=== PATIENT | female | born 1990 | race Caucasian/White ===

== ENCOUNTER 2018-04-11 17:33 | Outpatient (CLI) | payer OTHER ==
[~2018-04-11] VITALS: Ht 175.3 cm; Wt 92.3 kg
[2018-04-11] MEDS ORDERED: PRENATAL1 TA7 PO (17:37)
[2018-04-11] MEDS ORDERED: FOLIC ACID 11 MG/TA1 PO (17:37)
[2018-04-11 17:38] VITALS: BP 138/77; PULSE 100; TEMP 98.1
[2018-04-11] MEDS ORDERED: ZOFRAN 4MG T4 MG/TAB PO (17:38)
[2018-04-11] MEDS ORDERED: ZANTAC 150MG T150 MG PO (17:38)
[2018-04-11 17:47] LABS: COLLECTION METHOD CLEAN CATCH
[2018-04-11 17:52] LABS: BASO % 0.3 % (0.0-2.0); EOS # 0.2 (0.0-0.7); EOS % 1.5 % (0-4.0); GRAN # 8.4 (1.4-6.5); GRAN % 74.1 % (42.2-75.2); HEMOGLOBIN 10.1 g/dl (12.5-16.0); LYMPH # 1.8 (1.2-3.4); LYMPH % 15.7 % (20.0-51.0); MEAN CELL VOLUME 84 fl (80.0-100.0); MEAN CORPUSCULAR HEMOGLOBIN 28 pg (27.0-31.0); MEAN CORPUSCULAR HGB CONC 34 g/dl (33.0-37.0); MEAN PLATELET VOLUME 9.3 fl (7.4-10.4); MONO # 0.9 (0.1-0.6); MONO % 7.8 % (1.7-9.3); PLATELET COUNT 237 K/mm3 (130-400); RED BLOOD COUNT 3.58 M/mm3 (4.10-5.30); REDCELL DISTRIBUTION WIDTH-CV 13.2 % (11.5-14.5)
[2018-04-11 17:55] LABS: MUCOUS Present /lpf; PH 5 (5-8); URINE APPEARANCE Hazy; URINE BACTERIA Rare /hpf; URINE BILIRUBIN Negative (NEGATIVE); URINE BLOOD Negative (NEGATIVE); URINE COLOR Yellow; URINE GLUCOSE Negative (NEGATIVE); URINE KETONE Trace (NEGATIVE); URINE LEUKOCYTE ESTERASE 2+ (NEGATIVE); URINE NITRATE Negative (NEGATIVE); URINE PROTEIN(semi-quant) 1+ (NEGATIVE); URINE UROBILINOGEN Negative (NEGATIVE); URINE WBC 20-50 /hpf
[2018-04-11 18:00] VITALS: BP 133/65; PULSE 99
[2018-04-11] MEDS ORDERED: MACROBID 1100 MG/CAP PO (18:10)
== END 2018-04-11 18:15 | disposition home or self-care (01) ==
LOC: LDRO 17:33
PROVIDERS: Obstetrics & Gynecology
DX: O60.03 Preterm labor without delivery, third trimester (principal); Z3A.29 29 weeks gestation of pregnancy

== ENCOUNTER 2018-04-21 17:00 | Outpatient (CLI) | payer OTHER ==
[~2018-04-21] VITALS: Ht 175.3 cm; Wt 93.4 kg
[~2018-04-21 17:00] MED LIST: FOLIC ACID 11 MG/TA1 PO; MACROBID 1100 MG/CAP PO; PRENATAL1 TA7 PO; ZANTAC 150MG T150 MG PO; ZOFRAN 4MG T4 MG/TAB PO
== END 2018-04-21 17:45 | disposition home or self-care (01) ==
LOC: LDR 17:00 → LDRO 17:00
DX: O30.043 Twin pregnancy, dichorionic/diamniotic, third trimester (principal); Z3A.30 30 weeks gestation of pregnancy
CPT/HCPCS: OP

== ENCOUNTER 2018-05-23 11:25 | Outpatient (RCR) | payer OTHER ==
[2018-05-09 11:09] VITALS: BP 127/74; PULSE 103
[~2018-05-23] VITALS: Ht 175.3 cm; Wt 94.3 kg
[2018-05-30] MEDS ORDERED: MOTRIN 800800 MG/TAB PO (07:21)
[2018-05-30] MEDS ORDERED: PERCOCET 325 MG1 TA2 PO (07:21)
== END 2018-07-24 | disposition home or self-care (01) ==
LOC: LDRO
DX: O30.003 Twin pregnancy, unspecified number of placenta and unspecified number of amniotic sacs, third trimester (principal); Z3A.31 31 weeks gestation of pregnancy
CPT/HCPCS: J0690; J2370; J2405

== ENCOUNTER 2018-05-30 05:27 | Inpatient (IN) | payer OTHER ==
[~2018-05-30] VITALS: Ht 175.3 cm; Wt 96.4 kg
[2018-05-30] VITALS (15 sets, daily range): BP systolic 111–174; BP diastolic 61–93; PULSE 62–101; TEMP 98–98.3
[2018-05-30 06:23] LABS: BASO % 0.3 % (0.0-2.0); EOS # 0.1 (0.0-0.7); EOS % 0.8 % (0-4.0); GRAN # 7.2 (1.4-6.5); GRAN % 65.9 % (42.2-75.2); HEMOGLOBIN 10.7 g/dl (12.5-16.0); LYMPH # 2.4 (1.2-3.4); LYMPH % 22.1 % (20.0-51.0); MEAN CELL VOLUME 80 fl (80.0-100.0); MEAN CORPUSCULAR HEMOGLOBIN 27 pg (27.0-31.0); MEAN CORPUSCULAR HGB CONC 33 g/dl (33.0-37.0); MEAN PLATELET VOLUME 10.3 fl (7.4-10.4); MONO # 1.1 (0.1-0.6); MONO % 10.3 % (1.7-9.3); PLATELET COUNT 268 K/mm3 (130-400); RED BLOOD COUNT 4.03 M/mm3 (4.10-5.30); REDCELL DISTRIBUTION WIDTH-CV 13.7 % (11.5-14.5)
[2018-05-30 06:54] LABS: HEMATOCRIT 32.4 % (37.0-47.0)
[2018-05-30] MEDS ORDERED: MOTRIN 800800 MG/TAB PO (07:21)
[2018-05-30] MEDS ORDERED: PERCOCET 325 MG1 TA2 PO (07:21)
[2018-05-31 01:10] VITALS: BP 128/76; PULSE 79; TEMP 98.4
[2018-05-31 07:00] VITALS: BP 125/75; PULSE 82; TEMP 98
[2018-05-31 15:45] VITALS: BP 123/79; PULSE 81; TEMP 98.9
[2018-05-31 20:30] VITALS: BP 128/72; PULSE 93; TEMP 98.3
[2018-06-01 08:15] VITALS: BP 121/82; PULSE 87; TEMP 98.3
[2018-06-01 16:15] VITALS: BP 133/78; PULSE 94; TEMP 99.3
[2018-06-01 22:45] VITALS: BP 125/76; PULSE 87; TEMP 98.2
[2018-06-02 07:30] VITALS: BP 130/77; PULSE 79; TEMP 98.2
== END 2018-06-02 12:45 | disposition home or self-care (01) | DRG 765 ==
LOC: OB 05:27 → LDR 06:37 → OB 06-02 12:45
PROVIDERS: Obstetrics & Gynecology
PROC: 10D00Z1 Extraction of Products of Conception, Low, Open Approach (ICD-10-PCS; principal; 2018-05-30)
PROC: 0UT70ZZ Resection of Bilateral Fallopian Tubes, Open Approach (ICD-10-PCS; 2018-05-30)
DX: O36.5931 Maternal care for other known or suspected poor fetal growth, third trimester, fetus 1 (principal); O36.5932 Maternal care for other known or suspected poor fetal growth, third trimester, fetus 2; O30.043 Twin pregnancy, dichorionic/diamniotic, third trimester; Z3A.36 36 weeks gestation of pregnancy; Z37.2 Twins, both liveborn; Z40.03 Encounter for prophylactic removal of fallopian tube(s); O99.214 Obesity complicating childbirth; Z22.330 Carrier of Group B streptococcus
CPT/HCPCS: J0690; J1885; J2175; J2370; J2405; J2590; J3010; J7120

== ENCOUNTER → 2020-01-09 | Outpatient (CLI) | payer OTHER ==
[~2020-01-09] MED LIST changes: +MOTRIN 800800 MG/TAB PO; +PERCOCET 325 MG1 TA2 PO
== END ==
LOC: BHSO 12:51
DX: F41.1 Generalized anxiety disorder (principal)

== ENCOUNTER → 2020-01-30 | Outpatient (CLI) | payer OTHER | LOC: BHSO 13:09 | DX: F33.1 Major depressive disorder, recurrent, moderate (principal) ==

== ENCOUNTER → 2020-02-06 | Outpatient (CLI) | payer OTHER | LOC: BHSO 13:58 | DX: F41.1 Generalized anxiety disorder (principal) ==

== ENCOUNTER → 2020-02-13 | Outpatient (CLI) | payer OTHER | LOC: BHSO 13:54 | DX: F41.1 Generalized anxiety disorder (principal) ==

== ENCOUNTER → 2020-03-19 | Outpatient (CLI) | payer OTHER ==
[~2020-03-19] VITALS: Ht 175.3 cm; Wt 105.8 kg
[~2020-03-19] MED LIST changes: +WELLBUTRIN XL300 M1 PO; +ZOLOFT 100MG100 MG PO
[2020-03-19 12:15] VITALS: BP 144/98; PULSE 104
[2020-03-19 13:05] VITALS: BP 146/96; PULSE 100
--- NOTE | 2020-03-19 13:22 | NUR ---
PT AMBULATORY TO FRONT LOBBY. AGAIN WENT OVER DC INSTRUCTIONS WITH PT. PT VERBALIZED UNDERSTANDING OF INSTRUCTIONS.
== END ==
LOC: COL.RAD 11:54
DX: E07.9 Disorder of thyroid, unspecified (principal)

== ENCOUNTER 2020-07-06 14:53 | Inpatient (IN) | payer OTHER ==
[~2020-07-06] VITALS: Ht 175.3 cm; Wt 106.5 kg
[2020-07-06 15:18] LABS: BASO % 0.4 % (0.0-2.0); EOS # 0.1 (0.0-0.7); EOS % 1.1 % (0-4.0); GRAN # 3.2 (1.4-6.5); HEMATOCRIT 41.6 % (37.0-47.0); HEMOGLOBIN 13.3 g/dl (12.5-16.0); LYMPH # 0.8 (1.2-3.4); LYMPH % 18.7 % (20.0-51.0); MEAN CELL VOLUME 82 fl (80.0-100.0); MEAN CORPUSCULAR HEMOGLOBIN 26 pg (27.0-31.0); MEAN CORPUSCULAR HGB CONC 32 g/dl (33.0-37.0); MEAN PLATELET VOLUME 9.4 fl (7.4-10.4); MONO # 0.4 (0.1-0.6); MONO % 8.4 % (1.7-9.3); PLATELET COUNT 227 K/mm3 (130-400); RED BLOOD COUNT 5.09 M/mm3 (4.10-5.30); REDCELL DISTRIBUTION WIDTH-CV 13.5 % (11.5-14.5)
[2020-07-06 15:28] LABS: ALBUMIN 4.2 gm/dL (3.5-5.0); BILIRUBIN,TOTAL 0.5 mg/dL (0.0-1.0); CALCIUM 8.9 mg/dL (8.4-10.2); CREATININE, serum 0.86 (0.52-1.25); POTASSIUM 3.7 mmol/L (3.4-5.0)
[2020-07-06 18:27] VITALS: BP 122/68; PULSE 118; TEMP 100.2
--- NOTE | 2020-07-06 18:32 | NUR ---
PT ARRIVED TO UNIT @ 1750. STATES MODERATE PAIN TO MID CHEST SHARP 'LIKE BREATHING IN COLD AIR IN THE WINTER". AT REST AND WITH ACTIVITY. VSS. REQUESTING DINNER. STEADY INDEPENDENT AMBULATION. IVF TO RT FA IV INTACT. DENIES COUGH AT THIS TIME
[2020-07-06] MEDS ORDERED: PROAIR HFA0.09 MG/AC IH (18:33)
[2020-07-06] MEDS ORDERED: MUCINEX 60600 MG/TA1 PO (18:34)
[2020-07-06 20:00] VITALS: BP 150/85; PULSE 105; TEMP 100.5
[2020-07-06 21:44] VITALS: TEMP 98.5
--- NOTE | 2020-07-06 22:03 | NUR ---
Pt assessment completed and documented. Pt just returned to bed from ambulating in her room. Complaints of chest tightness that is unchanged since admit and is worse when she is ambulating. Pt states slight relief from pain now that she is resting in bed again. Pt described chest tightness as if she "feels like she is breathing in cold air". PRN tylenol given at this time per pt request. IVF infusing per orders to right forearm IV site. IV site CDI with good blood return. Telemetry on. Pt denies any other needs. Call light within reach. Will continue to monitor.
[2020-07-06 23:53] VITALS: BP 145/72; PULSE 96; TEMP 97.6
[2020-07-07 04:00] VITALS: BP 148/82; PULSE 82; TEMP 97.8
--- NOTE | 2020-07-07 05:00 | NUR ---
Pt had uneventful shift. Pt rested well overnight. Max temp during the night was 100.5. PRN tylenol given per pt request for complaints of "chest tightness". Telemetry on. IVF infusing per orders to right forearm IV. Pt denies any other needs. Call light within reach.
--- NOTE | 2020-07-07 06:30 | NUR ---
Report given outside room, discussed with pt at doorway and asked for needs. Will provide and continue to monitor.
[2020-07-07 06:46] LABS: BASO % 0.3 % (0.0-2.0); GRAN # 2.2 (1.4-6.5); GRAN % 60.9 % (42.2-75.2); HEMATOCRIT 37.9 % (37.0-47.0); HEMOGLOBIN 12.3 g/dl (12.5-16.0); LYMPH # 1.1 (1.2-3.4); LYMPH % 29.9 % (20.0-51.0); MEAN CELL VOLUME 82 fl (80.0-100.0); MEAN CORPUSCULAR HEMOGLOBIN 27 pg (27.0-31.0); MEAN CORPUSCULAR HGB CONC 33 g/dl (33.0-37.0); MEAN PLATELET VOLUME 9.7 fl (7.4-10.4); MONO # 0.3 (0.1-0.6); MONO % 8.4 % (1.7-9.3); PLATELET COUNT 206 K/mm3 (130-400); RED BLOOD COUNT 4.65 M/mm3 (4.10-5.30); REDCELL DISTRIBUTION WIDTH-CV 13.8 % (11.5-14.5)
[2020-07-07 07:03] LABS: CALCIUM 8.2 mg/dL (8.4-10.2); CREATININE, serum 0.72 (0.52-1.25)
[2020-07-07 09:08] VITALS: BP 102/68; PULSE 92; TEMP 98.2
--- NOTE | 2020-07-07 09:20 | NUR ---
Assessment charted. Pt resting in bed, educated on how to use IS, pt only able to raise it to 500 ml, coughing copious but not expectorating anything. Pt resting in bed and states when at rest no pain but when breathing deeply or up ambulating pain in chest is 8/10. VSS, breathing shallow. IVF to RFA. Will continue to monitor.
[2020-07-07 13:50] VITALS: BP 136/84; PULSE 93; TEMP 98.7
--- NOTE | 2020-07-07 16:27 | NUR ---
Dining Host contacted patient by phone to discuss discharge planning. Patient lives on [address] with her , Luis (ph#[phone]) and sees CHEL Brumfield at [facility]. Patient obtains medications from [facility] or [facility]. Patient does not use any DME and is independent with ADLS. Patient does not have Advance Directives in EMR. Patient plans to return home upon discharge. SW will continue to follow as needed.
[2020-07-07 17:33] VITALS: BP 124/82; PULSE 102; TEMP 99.3
--- NOTE | 2020-07-07 18:22 | NUR ---
Pt has done well today, cnotinues to have shortness of breath and dry cough. PRN tyelenol given per request. Resting in bed, wants to shower after supper. Denies needs, will continue to monitor.
--- NOTE | 2020-07-07 19:20 | NUR ---
Report received from SARIKA Houser. Pt resting in bed, denies needs at this time.
[2020-07-07 20:00] VITALS: BP 145/84; PULSE 105; TEMP 98.6
--- NOTE | 2020-07-07 20:15 | NUR ---
Bedside report received from SARIKA Rogers
[2020-07-08] VITALS (8 sets, daily range): BP systolic 130–150; BP diastolic 70–98; PULSE 97–124; TEMP 99.1–102.9
--- NOTE | 2020-07-08 01:15 | NUR ---
patient has complaints of a headache, tylenol provided. Patient also gets up to the restroom, returns to bed very SOA. Patient takes 15mins before she is calm again and able to lay back. Patient says she feels like her SOA is worse than yesterday. Let her know that she needs to notify us if she feels like she can't breathe and we can start her on some oxygen. Notified RT John of this change.
--- NOTE | 2020-07-08 06:00 | NUR ---
Patient states she is doing much better a this time breathing minor. States that she did finally get some sleep. Labs drawn. Apple juice requested, provided. No further needs at this time. Call light within reach
[2020-07-08 06:33] LABS: CALCIUM 7.7 mg/dL (8.4-10.2); CREATININE, serum 0.84 (0.52-1.25); POTASSIUM 3.6 mmol/L (3.4-5.0)
[2020-07-08 06:42] LABS: BASO % 0.1 % (0.0-2.0); GRAN # 4.6 (1.4-6.5); GRAN % 66.5 % (42.2-75.2); HEMOGLOBIN 10.8 g/dl (12.5-16.0); LYMPH # 1.9 (1.2-3.4); MEAN CELL VOLUME 83 fl (80.0-100.0); MEAN CORPUSCULAR HEMOGLOBIN 27 pg (27.0-31.0); MEAN CORPUSCULAR HGB CONC 32 g/dl (33.0-37.0); MEAN PLATELET VOLUME 9.5 fl (7.4-10.4); MONO # 0.4 (0.1-0.6); PLATELET COUNT 217 K/mm3 (130-400); RED BLOOD COUNT 4.07 M/mm3 (4.10-5.30); REDCELL DISTRIBUTION WIDTH-CV 13.9 % (11.5-14.5)
[2020-07-08 06:47] LABS: HEMATOCRIT 33.9 % (37.0-47.0)
--- NOTE | 2020-07-08 07:08 | NUR ---
Bedside report given to SARIKA Arvizu
--- NOTE | 2020-07-08 09:00 | NUR ---
Patient sitting up in bed, does not want to move because it hurts to move. Refusing pain medication. VSS. Reporting SOB with exertion and talking, on room air and O2 sats WNL. IV CDI, fluids infusing. Droplet/contact precautions in place. No further needs expressed from the patient. Call light within reach
--- NOTE | 2020-07-08 17:40 | NUR ---
Patient has had an eventful day. Reporting dyspnea with exertion and talking, no O2 required. O2 sats WNL on room air. VSS. A&Ox4. Only complaint of a headache not relieved by tylenol. Has had a laible temperature and given tylenol as needed. IV CDI, fluids infusing. Droplet/contact precautions in place. No further needs expressed from the patient. Call light within reach
--- NOTE | 2020-07-08 21:00 | NUR ---
Initial shift assessment done- temp 99.7, requesting Tylenol- given at this time. Tele on. Up to bathroom on own- SOB with exertion, back to bed now- o2 sats 96% on room air. Did eat 1/2 supper tonight. IV fluids of NS at 60cc/hr.
[2020-07-09] VITALS (291 sets, daily range): BP systolic 118–142; BP diastolic 79–95; PULSE 101–124; TEMP 98.2–103.1; O2SAT 92–100
--- NOTE | 2020-07-09 04:30 | NUR ---
Temp 103.1- pt states she feels awful-feels like she is" getting worse", when getting tylenol- pt states is nauseated- did give the Zofran IV as ordered and stayed with pt for 15 minutes to see if nausea will pass-- still nauseated,,Poppy VALENTINE called with temp and nausea--will order phenergan and tylenol suppository,,,, pt helped up to bathroom,gets SOB with activity- sats do not drop though-- will put o2 at 2L/nc for comfort- back to bed, tylenol and phenergan given--stayed with patient -- states she does have a headache also--was just given tylenol,, was with patient for over an hour,,anxious-- seems more relaxed now- resting.
--- NOTE | 2020-07-09 10:40 | NUR ---
Assessment complete. Patient sitting up in bed finishing consult with Dr. Madrigal at this time. States she does still feel short of breath and like it is hard to breathe, per her conversation with Dr. Madrigal. heart rate remains tachycardic. She reports a headache at this time, PRN tylenol provided for this pain.
--- NOTE | 2020-07-09 11:52 | NUR ---
Patient transferred to the ICU. SW notified ICU EMERITA Dougherty.
--- NOTE | 2020-07-09 13:49 | NUR ---
Patient transferred to the ICU at this time. Patient remained stable through transfer. report called to SARIKA Nina prior to move. Patient became short of breath while ambulating from bed to wheel chair but managed to transfer well. Chart was handed off.
[2020-07-09 14:09] LABS: ARTERIAL BLD GAS O2 SATURATION 93.1 % (92-100); ARTERIAL BLD GAS TCO2 CT 24.9; ARTERIAL BLOOD GAS BASE EXCESS 0.8 (-2-2); ARTERIAL BLOOD GAS HCO3 23.9 meq/L (22-26); ARTERIAL BLOOD GAS PCO2 33.4 mmHg (35-45); ARTERIAL BLOOD GAS PO2 59.1 mmHg (80-100); ARTERIAL BLOOD GAS pH 7.47 (7.35-7.45)
--- NOTE | 2020-07-09 19:00 | NUR ---
Received report from SARIKA Nina. Patient is sitting upright in bed with meal tray at this time. No needs at this time; patient is tachypneic at a rate of 25-30. Other vitals within normal limits. Will continue to monitor.
--- NOTE | 2020-07-09 20:30 | NUR ---
Patient notibly more tachypneic and tachycardic during and following use of commode. HR reaching 130s at times. Auscultated respiratory rated noted to be high 40s to 50 after patient resting quietly in bed 15 minutes following transfer. She remains on 2L NC with O2 saturation mid to high 90s. She states she feels short of breath and is experiencing some chest tightness, but not chest pain. Other vitals remain within normal limits. Patient also states she has not slept well the last few nights, and is anxious she will not have a good night tonight either. Spoke with RT, who agreed patient seems to have increased work of breathing even after a breathing treatment. Poppy notified at 2112 of patient's condition and vital signs.
[2020-07-09] MEDS ORDERED: ZOLOFT 50MG50 MG PO (22:19)
[2020-07-09] MEDS ORDERED: WELLBUTRIN XL300 M1 PO (22:20)
[2020-07-09 22:45] LABS: ARTERIAL BLD GAS O2 SATURATION 94.5 % (92-100); ARTERIAL BLOOD GAS BASE EXCESS -2.2 (-2-2); ARTERIAL BLOOD GAS HCO3 21.1 meq/L (22-26); ARTERIAL BLOOD GAS PCO2 31.5 mmHg (35-45); ARTERIAL BLOOD GAS PO2 71.8 mmHg (80-100); ARTERIAL BLOOD GAS pH 7.44 (7.35-7.45)
[2020-07-10] VITALS (669 sets, daily range): BP systolic 119–132; BP diastolic 80–90; PULSE 88–107; TEMP 98.2–99.3; O2SAT 83–100
[2020-07-10 05:48] LABS: HEMATOCRIT 37.4 % (37.0-47.0); MEAN CELL VOLUME 82 fl (80.0-100.0); MEAN CORPUSCULAR HEMOGLOBIN 26 pg (27.0-31.0); MEAN CORPUSCULAR HGB CONC 32 g/dl (33.0-37.0); MEAN PLATELET VOLUME 9.4 fl (7.4-10.4); PLATELET COUNT 252 K/mm3 (130-400); RED BLOOD COUNT 4.58 M/mm3 (4.10-5.30)
[2020-07-10 05:57] LABS: CALCIUM 8.6 mg/dL (8.4-10.2); CREATININE, serum 0.84 (0.52-1.25); POTASSIUM 3.5 mmol/L (3.4-5.0)
--- NOTE | 2020-07-10 19:45 | NUR ---
Patient awake and watching TV. Reports feeling "ok". Denies shortness of breath at this time, however, is taking rapidshallow breaths. Encouraged to take deep breaths and cough at least 10 times per hour to prevent atelectasis. Patient verbalizes understanding. Denies any needs or concerns at this time. Will continue to monitor.
--- NOTE | 2020-07-10 22:53 | NUR ---
Updated Dr. Ren via telephone; no new orders at this time.
[2020-07-11] VITALS (609 sets, daily range): BP systolic 106–131; BP diastolic 68–92; PULSE 58–93; TEMP 97.8–99.3; O2SAT 88–99
[2020-07-11 06:27] LABS: BASO % 0.2 % (0.0-2.0); GRAN # 3.2 (1.4-6.5); GRAN % 67.2 % (42.2-75.2); HEMOGLOBIN 11.5 g/dl (12.5-16.0); LYMPH % 20.6 % (20.0-51.0); MEAN CELL VOLUME 82 fl (80.0-100.0); MEAN CORPUSCULAR HEMOGLOBIN 26 pg (27.0-31.0); MEAN CORPUSCULAR HGB CONC 31 g/dl (33.0-37.0); MEAN PLATELET VOLUME 9.4 fl (7.4-10.4); MONO # 0.5 (0.1-0.6); MONO % 10.9 % (1.7-9.3); PLATELET COUNT 269 K/mm3 (130-400); RED BLOOD COUNT 4.49 M/mm3 (4.10-5.30); REDCELL DISTRIBUTION WIDTH-CV 13.8 % (11.5-14.5)
[2020-07-11 06:40] LABS: CALCIUM 9.1 mg/dL (8.4-10.2); CREATININE, serum 0.58 (0.52-1.25); POTASSIUM 4.5 mmol/L (3.4-5.0)
[2020-07-11 06:42] LABS: HEMATOCRIT 36.7 % (37.0-47.0)
--- NOTE | 2020-07-11 10:45 | NUR ---
The patient is COVID positive. SW contacted the patient to review discharge plan. The patient states that she is ready to get back home, but is nervous. She lives with her and three children. The patient is currently on 3 liters. SW discussed the possiblity of needing oxygen when she returns home. The patient verbalized understanding and states that she would be agreeable to receive the oxygen from [facility]. SW to continue to follow.
--- NOTE | 2020-07-11 18:49 | NUR ---
PT on 3L NC for all shift. SPO2 95-97%. PT remains tachnypeic unless asleep when respirations slow WNL. PT states she is scared to take deeper breaths, but will try.
--- NOTE | 2020-07-11 20:15 | NUR ---
Awake and resting in bed; reports some shortness of breath with exertion. Respirations are rapid and shallow. Encouraged to be taking deep breaths to assist with opening airways. Called RT to bring incentive spirometry and encouraged patient to use while awake. Will continue to monitor.
[2020-07-12] VITALS (569 sets, daily range): BP systolic 117–140; BP diastolic 79–88; PULSE 65–91; TEMP 97.7–98.2; O2SAT 91–100
--- NOTE | 2020-07-12 01:00 | NUR ---
Resting in bed with eyes shut; no concerns at this time.
[2020-07-12 06:05] LABS: MEAN CELL VOLUME 82 fl (80.0-100.0); MEAN CORPUSCULAR HEMOGLOBIN 26 pg (27.0-31.0); MEAN CORPUSCULAR HGB CONC 31 g/dl (33.0-37.0); MEAN PLATELET VOLUME 9.2 fl (7.4-10.4); PLATELET COUNT 300 K/mm3 (130-400); RED BLOOD COUNT 4.29 M/mm3 (4.10-5.30); REDCELL DISTRIBUTION WIDTH-CV 13.6 % (11.5-14.5)
[2020-07-12 06:07] LABS: HEMATOCRIT 35.1 % (37.0-47.0)
[2020-07-12 06:15] LABS: CALCIUM 9.2 mg/dL (8.4-10.2); CREATININE, serum 0.72 (0.52-1.25)
--- NOTE | 2020-07-12 07:00 | NUR ---
Report given to SARIKA Joseph. Patient care transfered.
[2020-07-12 10:20] LABS: BAND 3 % (0-10); LYMPHOCYTE 28 % (20.0-51.0); NEUTROPHILS 62 % (42.0-75.2); PLATELET ESTIMATE NORMAL (NORMAL)
--- NOTE | 2020-07-12 15:55 | NUR ---
pt transfered to medical unit room 306 @ 1530. oriented to room, water provided. denies pain or any concerns at this time. on 3l NC. steady in-room ambulation. PICC to RUE intact.
--- NOTE | 2020-07-12 20:00 | NUR ---
At time of assessment, patient is sitting in bed. She wears 3 L 02 and is satting 96%. Lung sounds are clear over diminished and heart sounds are regular rhythm with tachycardic rate of 95 bpm. No edema is present; Patient complains of headache and requests Tylenol. Patient is afebrile at this time. She does not appear to have any increased work of breathing. Will continue to monitor.
[2020-07-13 04:00] VITALS: BP 122/88; PULSE 78; TEMP 97.8
--- NOTE | 2020-07-13 06:02 | NUR ---
Patient has had a restful night. She has remained afebrile. Oxygen titrated to 2L and she is satting 97%.
[2020-07-13 08:09] VITALS: BP 136/78; PULSE 80; TEMP 97.9
--- NOTE | 2020-07-13 08:23 | NUR ---
MILAN NOTE: PT AOX4. REPORTS MILD HEADACHE AND NAUSEA BUT WOULD NOT LIKE MEDICATION AT THIS TIME. TITRATED DOWN TO 1L NC O2 SAT 96%. WEAK NON-PRODUCTIVE COUGH PT REPORTS SHE CAN FEEL SPUTUM BUT UNABLE TO COUGH IT UP. PICC TO RUE FLUSHES AND DRAWS. BNP ORDERED DUE TO BEING ON POTASIUM PROTOCOL. NO LABS THIS AM. STEADY INDEPENDENT AMBULATION IN ROOM. NO NEW CONCERNS
[2020-07-13 09:07] LABS: CALCIUM 9.3 mg/dL (8.4-10.2); CREATININE, serum 0.73 (0.52-1.25); POTASSIUM 3.9 mmol/L (3.4-5.0)
[2020-07-13 12:18] VITALS: BP 126/75; PULSE 82; TEMP 98
--- NOTE | 2020-07-13 15:01 | NUR ---
Provider spoke with this patient about possiblity of patient receivign oxygen. SW reviewed notes and informed provider. Provider noted that th epatient may not need it. SW will continue to follow up.
[2020-07-13 16:01] VITALS: BP 132/70; PULSE 90; TEMP 98.3
--- NOTE | 2020-07-13 19:23 | NUR ---
pt titrated down to RA with O2 sat steady at 94%. no new concerns. tolerating PO. no new concerns
--- NOTE | 2020-07-13 19:30 | NUR ---
Initial shift assessment done- states having a headache 5/10.will give tylenol as requested, no temp, 98.5, o2 sats 95% on RA, Tele on, pt states going home tomorrow. Up as tolerated in room. On droplet/contact precautions.
[2020-07-13 20:00] VITALS: BP 109/49; PULSE 100; TEMP 98.5
[2020-07-14 01:00] VITALS: BP 106/60; PULSE 84; TEMP 98.1
[2020-07-14 05:40] VITALS: PULSE 72; TEMP 98.1
--- NOTE | 2020-07-14 05:57 | NUR ---
Quiet night- no requests- VSS, afebrile all night
--- NOTE | 2020-07-14 07:00 | NUR ---
patient SP02 THIS AM 96% ON RA
--- NOTE | 2020-07-14 07:00 | NUR ---
Report received from SARIKA Bagley. Pt in room with RT getting breathing treatment, will come see her shortly when not in airborn precautions.
[2020-07-14 08:09] VITALS: BP 124/84; PULSE 84; TEMP 98.3
--- NOTE | 2020-07-14 08:33 | NUR ---
Assessment charted. Pt doing well, states she is feeling much better, trying to inspire deeply and use IS. Up ad prakash tobathroom. Denies pain, no diarrhea. Anticipating discharge today. PICC to [facility]. Will continue to monitor.
[2020-07-14] MEDS ORDERED: TYLENOL 325MG325 MG PO (11:55)
[2020-07-14] MEDS ORDERED: DECADRON6 MG PO (11:56)
[2020-07-14 12:27] VITALS: BP 110/78; PULSE 87; TEMP 98.3
--- NOTE | 2020-07-14 14:25 | NUR ---
Discharge teaching completed at this time. Pt received discharge packet, reviewed in detail. NEENA De León removed PICC to [facility], discharge PICC care reviewed by both of us. Pt left with all bleongings. Clean person, received and sealed all belongings in trash bag, pt escorted out via WC with clean person and myself donned in PPE. Pt wore mask and wrapped in blanket. Clean person opened all doors and pressed buttons. picked up patient wiht family, left with all belongings, to drive home, criteria met.
== END 2020-07-14 14:10 | disposition home or self-care (01) | DRG 177 ==
LOC: COL.ER 14:53 → MEDICAL 16:36 → ICU 07-08 12:10 → MEDICAL 07-08 12:12 → ICU 07-09 11:08 → MEDICAL 07-12 15:56
PROVIDERS: Family Medicine; Internal Medicine Critical Care Medicine; Internal Medicine Pulmonary Disease; Nurse Practitioner Family; Physician Assistant; ADMIT Student in an Organized Health Care Education/Training Program
PROC: 02HV33Z Insertion of Infusion Device into Superior Vena Cava, Percutaneous Approach (ICD-10-PCS; principal; 2020-07-10)
DX: U07.1 COVID-19 (principal); J96.01 Acute respiratory failure with hypoxia; J18.1 Lobar pneumonia, unspecified organism; F41.9 Anxiety disorder, unspecified; Z98.51 Tubal ligation status; R00.0 Tachycardia, unspecified; R19.7 Diarrhea, unspecified; R51 Headache
CPT/HCPCS: 99222-AI; 99232-AI; 99233-AI; 99239; A9284; C1751; G0378; J0696; J1100; J1200; J1650; J2405; J2550; J7030; J7050; J8540

== ENCOUNTER → 2020-08-07 | Outpatient (CLI) | payer OTHER ==
[~2020-08-07] MED LIST changes: +DECADRON6 MG PO; +MUCINEX 60600 MG/TA1 PO; +PROAIR HFA0.09 MG/AC IH; +TYLENOL 325MG325 MG PO; +ZOLOFT 50MG50 MG PO
== END ==
LOC: COL.RAD 11:56
DX: J90 Pleural effusion, not elsewhere classified (principal)